=== PATIENT | male | born 1960 | race Caucasian/White ===

== ENCOUNTER 2022-06-06 13:55 | Outpatient (CLI) | payer BC | END 2022-06-06 13:56 | disposition home or self-care (01) | LOC: TBSIIMAG 13:55 | PROVIDERS: ATTEND Neurological Surgery | DX: M25.551 Pain in right hip (principal); M25.512 Pain in left shoulder; M19.012 Primary osteoarthritis, left shoulder ==

== ENCOUNTER 2022-09-05 10:31 | Outpatient (CLI) | payer OTHER | END 2022-09-05 10:32 | disposition home or self-care (01) | LOC: RAD 10:31 | PROVIDERS: ATTEND Preventive Medicine Occupational Medicine | DX: M75.51 Bursitis of right shoulder (principal); M25.811 Other specified joint disorders, right shoulder; R93.7 Abnormal findings on diagnostic imaging of other parts of musculoskeletal system ==

== ENCOUNTER 2022-11-09 08:41 | Outpatient (CLI) | payer BC ==
[2022-11-09 09:59] LABS: Mean Corpuscular Hemoglobin 31.3 pg (27.0-33.0); Mean Corpuscular Volume 89.3 fl (81.2-95.1); Mean Platelet Volume 10.4 fl (7.4-10.4); Platelet Count 170 10x3/uL (150-450); RBC Distribution Width 12.4 % (11.5-14.5); Red Blood Cell (RBC) Count 4.48 10x6/uL (4.32-5.72); White Blood Cell (WBC) Count 4.6 10x3/uL (3.5-10.5)
[2022-11-09 10:16] LABS: PTT 29.9 sec (22.0-33.0); Prothrombin Time 10.7 sec (9.5-12.1)
[2022-11-09 10:21] LABS: ALT (SGPT) 57 U/L (8-55); AST (SGOT) 39 U/L (5-34); Albumin 4.3 g/dL (3.4-4.8); Alkaline Phosphatase 70 U/L (40-110); Anion Gap 12 mmol/L (10-20); BUN (Urea Nitrogen) 15 mg/dL (8.4-25.7); Bilirubin, Direct 0.1 mg/dL (0.1-0.3); Bilirubin, Total 0.5 mg/dL (0.2-1.2); Calc. Creatinine Clearance 0 mL/min (70-130); Calcium 9.2 mg/dL (7.8-10.44); Carbon Dioxide 25 mmol/L (23-31); Chloride 105 mmol/L (98-107); Estimated GFR 92; Glucose 97 mg/dL (80-115); Potassium 4.2 mmol/L (3.5-5.1); Protein, Total 7.2 g/dL (5.8-8.1); Sodium 138 mmol/L (136-145)
== END 2022-11-09 08:42 | disposition home or self-care (01) ==
LOC: LABBT 08:41
PROVIDERS: ATTEND Neurological Surgery
DX: Z01.818 Encounter for other preprocedural examination (principal); M54.12 Radiculopathy, cervical region
CPT/HCPCS: 80048; 80076; 85027; 85610; 85730; 93005; 93010

== ENCOUNTER 2022-11-13 06:05 | Inpatient (IN) | payer BC ==
[2022-11-13] MEDS ORDERED: CEFAZOLIN 2 GM VIAL ONE ×2 (08:26→16:55)
[2022-11-13] MEDS ORDERED: Sodium Chloride 0.9% 100 ML ONE ×2 (08:26→16:55)
[2022-11-13] MEDS ORDERED: fentaNYL 50 mcg/mL 1 mL Vial ONE ×2 (08:39→16:01)
[2022-11-13] MEDS ORDERED: Midazolam HCl 2 mg/2 ml Vial ONE (08:39)
[2022-11-13] MEDS ORDERED: Succinylcholine 200 MG/10 ml SYRINGE FS ONE (08:39)
[2022-11-13] MEDS ORDERED: SUGAMMADEX SODIUM 200 MG/2 ML VIAL ONE (08:39)
[2022-11-13] MEDS ORDERED: Thrombin 5000 UNITS/5 ML VIAL ONE (08:43)
[2022-11-13] MEDS ORDERED: PHENYLEPHRINE-NS 100 MCG/ML 10 ML SYRINGE ONE (08:56)
[2022-11-13] MEDS ORDERED: Dexamethasone 20 MG/5 ML VIAL ONE (08:56)
[2022-11-13] MEDS ORDERED: Rocuronium Bromide 10 MG/ML (10ML VIAL) ONE (08:56)
[2022-11-13] MEDS ORDERED: PROPOFOL 200 MG/20 ML VIAL ONE (08:56)
[2022-11-13] MEDS ORDERED: Lidocaine 1% PF 5 ML VIAL ONE (08:56)
[2022-11-13] MEDS ORDERED: Ondansetron PF 4 MG/2 ML Vial ONE (08:56)
[2022-11-13] MEDS ORDERED: HYDROmorphone 0.5 MG/0.5 ML SYRINGE ONE (09:24)
[2022-11-13] MEDS ORDERED: Phenylephrine 10 MG/ML VIAL ONE (10:01)
[2022-11-13] MEDS ORDERED: Promethazine HCl 25 MG/ML VIAL IM PRN (10:29)
[2022-11-13] MEDS ORDERED: HYDROmorphone 2 MG/ML VIAL SLOW IVP PRN (10:29)
[2022-11-13] MEDS ORDERED: Ondansetron HCl/PF 4 MG/2 ML Vial IVP PRN (10:29)
[2022-11-13] MEDS ORDERED: Ondansetron PF 4 MG/2 ML Vial IVP PRN (11:07)
[2022-11-13] MEDS ORDERED: Morphine 2 MG/ML VIAL SLOW IVP PRN (11:07)
[2022-11-13] MEDS ORDERED: Cyclobenzaprine 10 MG TAB PO PRN (11:07)
[2022-11-13] MEDS ORDERED: Acetaminophen/Codeine 30-300mg Tablet PO PRN ×2 (11:07)
[2022-11-13] MEDS ORDERED: diphenhydrAMINE 50 MG/ML VIAL IVP PRN (11:07)
[2022-11-13] MEDS ORDERED: Acetaminophen 325 MG TAB PO PRN (11:07)
[2022-11-13 11:10] LABS: #Basophils 0.1 thou/uL (0.0-0.2); #Eosinphils 0.3 thou/uL (0.0-0.7); #Monocytes 0.5 thou/uL (0.11-0.59); #Neutrophils 3.6 thou/uL (1.40-6.50); %Basophils 0.9 % (0.0-1.0); %Eosinophils 3.3 % (0.0-10.0); %Neutrophils 48.1 % (42.0-75.0); Hematocrit 38.6 % (42.0-52.0); Hemoglobin 13.3 g/dL (14.0-18.0); Mean Corpuscular HGB CONC 34.5 g/dL (32.0-36.0); Mean Corpuscular Hemoglobin 31.1 pg (27.0-31.0); Mean Corpuscular Volume 90.4 fl (78.0-98.0); Platelet Count 211 10x3/uL (130-400); RBC Distribution Width 12.5 % (11.5-14.5); Red Blood Cell (RBC) Count 4.27 mill/uL (4.70-6.10); White Blood Cell (WBC) Count 7.5 10x3/uL (4.8-10.8)
[2022-11-13] MEDS ORDERED: Fentanyl 250 MCG/5 ML VIAL ONE (11:23)
[2022-11-13] MEDS ORDERED: Tamsulosin HCl 0.4 MG CAP ONE (11:48)
[2022-11-13] MEDS ORDERED: Cyclobenzaprine 10 MG TAB ONE (11:51)
[2022-11-13] MEDS: CEFAZOLIN 2 GM in Sodium Chloride 0.9% 100 ML IVPB SCH (16:57)
[2022-11-13] MEDS: Sodium Chloride 0.9% 1,000 ML IV SCH (19:21)
[2022-11-13] MEDS ORDERED: Fenofibrate Nanocrystallized 145 MG TAB PO SCH (21:00)
[2022-11-13 21:16] VITALS: BMI 33.4
[2022-11-14] MEDS: CEFAZOLIN 2 GM in Sodium Chloride 0.9% 100 ML IVPB SCH ×2 (00:49→09:43)
[2022-11-14] MEDS: Sodium Chloride 0.9% 1,000 ML IV SCH ×2 (00:52→09:44)
[2022-11-14 04:26] LABS: #Monocytes 0.5 thou/uL (0.11-0.59); #Neutrophils 7.5 thou/uL (1.40-6.50); %Basophils 0.1 % (0.0-1.0); %Eosinophils 0.1 % (0.0-10.0); %Lymphocytes 12.8 % (21.0-51.0); %Monocytes 5.1 % (0.0-10.0); %Neutrophils 81.1 % (42.0-75.0); Hematocrit 34.2 % (42.0-52.0); Mean Corpuscular HGB CONC 35.1 g/dL (32.0-36.0); Mean Corpuscular Hemoglobin 31.6 pg (27.0-31.0); Mean Platelet Volume 10.6 fL (7.4-10.4); Platelet Count 160 10x3/uL (130-400); RBC Distribution Width 12.5 % (11.5-14.5); White Blood Cell (WBC) Count 9.2 10x3/uL (4.8-10.8)
[2022-11-14] MEDS ORDERED: Tamsulosin HCl 0.4 MG CAP PO SCH (06:00)
[2022-11-14 11:48] VITALS: TEMP 97.3
[2022-11-14 13:28] VITALS: BP 111/64
== END 2022-11-14 15:20 | disposition home or self-care (01) | DRG 473 ==
LOC: SDC 06:05 → OBSVTOIN 11:10 → IMCU/EMU 11:10
PROVIDERS: ADMIT Neurological Surgery; ATTEND Neurological Surgery
PROC: 0RG20A0 Fusion of 2 or more Cervical Vertebral Joints with Interbody Fusion Device, Anterior Approach, Anterior Column, Open Approach (ICD-10-PCS; principal; 2022-11-13)
PROC: 01N10ZZ Release Cervical Nerve, Open Approach (ICD-10-PCS; 2022-11-13)
PROC: 0RB30ZZ Excision of Cervical Vertebral Disc, Open Approach (ICD-10-PCS; 2022-11-13)
PROC: 00NW0ZZ Release Cervical Spinal Cord, Open Approach (ICD-10-PCS; 2022-11-13)
DX: M50.121 Cervical disc disorder at C4-C5 level with radiculopathy (principal); M54.16 Radiculopathy, lumbar region; E78.5 Hyperlipidemia, unspecified; I10 Essential (primary) hypertension; Z82.49 Family history of ischemic heart disease and other diseases of the circulatory system; Z83.3 Family history of diabetes mellitus; Z98.890 Other specified postprocedural states; Z87.891 Personal history of nicotine dependence; Z88.8 Allergy status to other drugs, medicaments and biological substances; M50.122 Cervical disc disorder at C5-C6 level with radiculopathy; Z89.021 Acquired absence of right finger(s); Z80.9 Family history of malignant neoplasm, unspecified
CPT/HCPCS: 36415; 85025; 86850; 86900; 86901; C1713; C1889; J1100; J1170; J2250; J2370; J2405; J2704; J3010; J3490; J7050